=== PATIENT | female | born 1990 | race Caucasian/White ===

== ENCOUNTER 2017-12-10 16:15 | Emergency (ER) | payer OTHER ==
[~2017-12-10] VITALS: Ht 154.9 cm; Wt 56.7 kg
[2017-12-10] MEDS ORDERED: LAMICTAL100 MG PO (16:25)
[2017-12-10] MEDS ORDERED: SERTRALINE HCL50 MG PO (16:26)
[2017-12-10] MEDS ORDERED: QUETIAPINE FUM100 MG PO (16:26)
[2017-12-10] MEDS ORDERED: BACTRIM DS TAB1 EAC1 PO (18:10)
[2017-12-10 18:41] VITALS: BP 103/82
== END 2017-12-10 18:42 | disposition home or self-care (01) ==
LOC: M.ERS 16:15
DX: L03.116 Cellulitis of left lower limb (principal); F32.9 Major depressive disorder, single episode, unspecified; F41.9 Anxiety disorder, unspecified; F17.200 Nicotine dependence, unspecified, uncomplicated

== ENCOUNTER → 2020-11-12 | Emergency (ER) | payer OTHER, MEDICAID ==
[~2020-11-12] VITALS: Ht 154.9 cm; Wt 54.4 kg
[~2020-11-12] MED LIST: BACTRIM DS TAB1 EAC1 PO; LAMICTAL100 MG PO; QUETIAPINE FUM100 MG PO; SERTRALINE HCL50 MG PO
[2020-11-12 21:17] VITALS: BP 124/73
== END ==
LOC: M.ERS 21:05
DX: O26.891 Other specified pregnancy related conditions, first trimester (principal); F10.129 Alcohol abuse with intoxication, unspecified; Y90.9 Presence of alcohol in blood, level not specified; O99.331 Smoking (tobacco) complicating pregnancy, first trimester; Z3A.01 Less than 8 weeks gestation of pregnancy

== ENCOUNTER 2021-03-16 06:46 | Emergency (ER) | payer OTHER, MEDICAID ==
[~2021-03-16] VITALS: Ht 154.9 cm; Wt 54.4 kg
[2021-03-16] MEDS ORDERED: PRENATAL (07:11)
[2021-03-16] MEDS ORDERED: DOXYCYCLINE 10100 MG PO (08:16)
[2021-03-16] MEDS ORDERED: PREDNISONE 20 M20 M1 PO (08:16)
[2021-03-16] MEDS ORDERED: PROAIR HFA8.5 GM INH (08:17)
[2021-03-16] MEDS ORDERED: AMOXICILLIN 50500 M1 PO (08:18)
[2021-03-16 08:24] VITALS: BP 115/60
== END 2021-03-16 08:24 | disposition home or self-care (01) ==
LOC: M.ERS 06:46
DX: J20.9 Acute bronchitis, unspecified (principal); Z20.822 Contact with and (suspected) exposure to COVID-19; F32.9 Major depressive disorder, single episode, unspecified; F41.9 Anxiety disorder, unspecified; F17.210 Nicotine dependence, cigarettes, uncomplicated; Z79.899 Other long term (current) drug therapy